=== PATIENT | male | born 1970 | race Caucasian/White ===

== ENCOUNTER 2018-07-08 10:33 | Observation (INO) | payer MEDICAID, OTHER ==
[~2018-07-08] VITALS: Ht 167.6 cm; Wt 90.4 kg
[~2018-07-08 10:33] MED LIST: ACET500C5 PO; ONDA4TAB14 PO
[2018-07-08] MEDS ORDERED: ASPIRIN 81 MG TAB PO STA (11:13)
[2018-07-08] MEDS ORDERED: morphine 4 MG/ML VIAL IV STA (11:13)
[2018-07-08] MEDS ORDERED: ONDANSETRON 4 MG INJ IV STA (11:13)
[2018-07-08] MEDS ORDERED: NITROGLYCERIN (SL) 0.4 MG TAB SL PRN (11:30)
[2018-07-08] MEDS ORDERED: ONDANSETRON 4 MG INJ IV PRN ×2 (13:30→15:30)
[2018-07-08] MEDS ORDERED: ACETAMINOPHEN 325 MG TAB PO PRN ×2 (13:30→15:30)
--- NOTE | 2018-07-08 13:50 | ERD ---
ER Documentation Chief Complaint Chief Complaint CP with head pain and nausea x 2 weeks, back pain x 3 days HPI 48-year-old male who presents to the emergency room with 2 weeks of progressive exertional chest discomfort that is left-sided. A proximally 3-10 presently. It was worse with exertion and worse with intercourse. He denies any mid back pain. He does have a very mild headache. He notes mild nausea with this. He did no back pain in triage but denies any ripping or tearing sensation or migratory sensation in the middle of his back. ROS All systems reviewed and are negative except as per history of present illness. Medications Home Meds Discontinued Scripts Acetaminophen* (Tylophen*) 500 Mg Capsule, 1 CAP PO Q6H PRN for PAIN AND OR ELEVATED TEMP, #20 CAP Prov:JESUS MANUEL SEVILLA PA-C 04/01/16 Ondansetron (Ondansetron Odt) 4 Mg Tab.rapdis, 4 MG PO Q6H PRN for NAUSEA AND/OR VOMITING, #10 TAB Prov:JESUS MANUEL SEVILLA PA-C 04/01/16 Allergies Allergies: Coded Allergies: No Known Allergy (Unverified , 07/08/18) PMhx/Soc History of Surgery: Yes (lap mame/appy) Anesthesia Reaction: No Hx Neurological Disorder: No Hx Respiratory Disorders: No Hx Cardiac Disorders: No Hx Psychiatric Problems: No Hx Miscellaneous Medical Probl: Yes (BACK PAIN) Hx Alcohol Use: Yes (OOC) Hx Substance Use: No Hx Tobacco Use: No Smoking Status: Never smoker FmHx Family History: No diabetes Physical Exam Vitals Vital Signs Date Temp Pulse Resp B/P (MAP) Pulse Ox O2 O2 Flow FiO2 Time Delivery Rate 07/08/18 Nasal 2 11:15 Cannula 07/08/18 97.4 74 18 133/73 96 10:41 (93) Physical Exam General: Well developed, well nourished, no acute distress Head: Normocephalic, atraumatic. Eyes: Pupils equally reactive, EOM intact ENT: Moist mucous membranes Neck: Supple, no lymphadenopathy Respiratory: Lungs clear bilaterally, no distress Cardiovascular: RRR, no murmurs, rubs, or gallops Abdominal: Soft, non-tender, non-distended, no peritoneal signs : Deferred MSK: No edema, no unilateral swelling, 5/5 strength, no pulse deficits Neurologic: Alert and oriented, moving all extremities, normal speech, no focal weakness, no cerebellar signs Skin: No rash Psych: Normal mood Result Diagram: 07/08/18 1120 07/08/18 1120 Results 24 hrs Laboratory Tests Test 07/08/18 11:20 White Blood Count 6.6 10^3/ul Red Blood Count 4.89 10^6/ul Hemoglobin 15.0 g/dl Hematocrit 43.9 % Mean Corpuscular Volume 89.8 fl Mean Corpuscular Hemoglobin 30.7 pg Mean Corpuscular Hemoglobin Concent 34.2 g/dl Red Cell Distribution Width 12.2 % Platelet Count 268 10^3/UL Mean Platelet Volume 9.6 fl Immature Granulocytes % 0.300 % Neutrophils % 64.5 % Lymphocytes % 25.1 % Monocytes % 7.1 % Eosinophils % 2.4 % Basophils % 0.6 % Nucleated Red Blood Cells % 0.0 /100WBC Immature Granulocytes # 0.020 10^3/ul Neutrophils # 4.3 10^3/ul Lymphocytes # 1.7 10^3/ul Monocytes # 0.5 10^3/ul Eosinophils # 0.2 10^3/ul Basophils # 0.0 10^3/ul Nucleated Red Blood Cells # 0.0 10^3/ul Sodium Level 140 mmol/L Potassium Level 3.9 mmol/L Chloride Level 105 mmol/L Carbon Dioxide Level 25 mmol/L Anion Gap 10 Blood Urea Nitrogen 16 mg/dl Creatinine 0.83 mg/dl Est Glomerular Filtrat Rate mL/min > 60 mL/min Glucose Level 144 mg/dl Calcium Level 9.8 mg/dl Troponin I < 0.012 ng/ml Current Medications Medications Dose Sig/Ronni Start Time Status Last (Trade) Ordered Route PRN Stop Time Admin Dose Reason Admin Aspirin 162 mg ONCE STAT 07/08/18 DC 07/08/18 (Aspirin) PO 11:13 11:25 07/08/18 11:14 1 tab Q5M UP TO 3 07/08/18 Nitroglycerin DOSES PRN 11:30 SL .CHEST (Nitroglyceri PAIN n (Sl Tab) 0.4 Mg) Morphine 4 mg ONCE STAT 07/08/18 DC 07/08/18 Sulfate IV 11:13 11:25 (morphine) 07/08/18 11:14 Ondansetron 4 mg ONCE STAT 07/08/18 DC 07/08/18 HCl (Zofran IV 11:13 11:25 Inj) 07/08/18 11:14 Ondansetron 4 mg ER BRIDGE 07/08/18 HCl (Zofran PRN IV 13:30 Inj) NAUSEA/VOMITI 07/09/18 13:29 NG 650 mg ER BRIDGE 07/08/18 Acetaminophen PRN PO 13:30 (Tylenol .MILD PAIN 07/09/18 13:29 Tab) 1-3 OR TEMP Procedures/MDM EKG, MONITORS, & DIAGNOSTIC IMAGING: EKG: I reviewed and interpreted a 12-lead EKG. Rhythm: Normal sinus rhythm ST Changes: No contiguous ST segment elevations T waves: No contiguous T wave inversions Impression: Subtle T wave inversion in lead III, abnormal EKG Repeat EKG: EKG: I reviewed and interpreted a 12-lead EKG. Rhythm: Normal sinus rhythm ST Changes: No contiguous ST segment elevations T waves: No contiguous T wave inversions Impression: Subtle T wave inversion and ST segment depression in lead III, abnormal EKG Chest x-ray: I reviewed and interpreted a 1 view of the chest Mediastinum: No enlargement Cardiac silhouette: No cardiomegaly Airspace: Clear lung fleming bilaterally without evidence of pneumothorax Bones: No evidence of fracture PROCEDURES: None LAB INTERPRETATION: Negative troponin MEDICAL DECISION MAKING: The patient's history, physical exam and clinical presentation is concerning for possible cardiogenic etiology and acute coronary syndrome. Based on the patient's clinical exam and history and risk factors, I have a much lower clinical concern for pulmonary embolism, acute aortic dissection, pneumothorax, pneumonia, cardiac tamponade HEART Score: 4 MACE Rate: 16% Shared Decision Making: We had a conversation regarding risk stratification, MACE rate, and the risks, benefits, alternatives of disposition planning options. Disposition planning: Admit for rule out ER COURSE: * Aspirin nitro morphine provided. Chest pain-free. * I do not believe this is consistent with acute aortic process. He is 2 weeks of symptoms. Patient has no significant hypertension or other risk factors. Better alternative diagnosis, no pulse deficits. Normal mediastinum on chest x-ray. CONSULTATION: None DISPOSITION PLAN: Telemetry admission for management of chest pain to rule out acute coronary syndrome, serial enzymes, risk stratification and consideration of provocative testing CONSULTATION: Accepting care team and consultations: I discussed the current laboratory data, diagnostic imaging and emergency care provided. Admitting team: Dr. Mcdaniel Admitting team indication: Insurance directed Departure Diagnosis: Primary Impression: Chest pain Chest pain type: unspecified Qualified Codes: R07.9 - Chest pain, unspecified Condition: Stable ROMIE ELIZABETH MD Jul 08, 2018 13:50
[2018-07-08 15:04] VITALS: Ht 167.6 cm; Wt 90.4 kg
[2018-07-08 15:07] VITALS: BP 109/55; PULSE 55; RESP 18
[2018-07-08] MEDS ORDERED: NACL 0.9% 3 ML SYG IV SCH (15:30)
[2018-07-08 15:33] VITALS: PULSE 48
--- NOTE | 2018-07-08 15:55 | HP ---
Date/Time of Note Date/Time of Note DATE: 07/08/18 TIME: 15:40 Assessment/Plan VTE Prophylaxis SCD applied (from Nsg): Yes Pharmacological prophylaxis: NA/contraindicated Pharm contraindication: low risk/ambulating Lines/Catheters IV Catheter Type (from Nrsg): Saline Lock Assessment/Plan Assessment/Plan 48 yo man no major PMH presents with unstable angina symptoms. #Chest pain - Initially on exertion, now worsening over past two weeks; negative troponins concerning for unstable angina - With pain radiating to back; will also check amylase/lipase as well as CT chest to r/o aortic pathology - Continue to trend trops - NG prn - TTE - Consulted Dr. Sr #Headache - tension-type. Currently no red flags to indicate imaging. - Tylenol, norco prn #Nausea/vomiting - May be related to chest pain - Zofran prn - will trial regular diet. DVT: SCDs GI: PPI Result Diagram: 07/08/18 1120 07/08/18 1120 HPI/ROS Admit Date/Time Admit Date/Time Jul 08, 2018 at 13:20 Hx of Present Illness Mr. Loving is a Macedonian-speaking man with no major PMH who presents with acute on chronic chest pain. Symptoms started 2 weeks ago. During intercourse with his he developed pressure-like mid substernal chest pain. After finishing he took aspirin with relief of pain. This exertional chest pain has occurred a few more times over the past two weeks. Today during intercourse he developed the same substernal chest pain, and then developed pressure-like back pain, severe aching occipital- bitemporal headache, and vomited x2 (nonbloody, nonbilious). Otherwise, he reports several months of decreasing exercise tolerance with dyspnea on exertion. For the past two months he's noticed frequent chills at night but no fevers or night sweats. Also reports burning dysuria for several days. He also reports orthopnea for several weeks. In the ED he was afebrile, vitals unremarkable. Labs were normal. Initial trop negative, CXR negative. ROS He denies fevers, night sweats, weight loss, anorexia, vision changes, sore throat, dysphagia, cough, abdominal pain, diarrhea, constipation, joint pain, melena, hematochezia. PMH/Family/Social Past Medical History Denies Medications Current Medications Nitroglycerin (Nitroglycerin (Sl Tab) 0.4 Mg) 1 tab Q5M UP TO 3 DOSES PRN SL .CHEST PAIN; Start 07/08/18 at 11:30 Ondansetron HCl (Zofran Inj) 4 mg ER BRIDGE PRN IV NAUSEA/VOMITING; Start 07/08/18 at 13:30; Stop 07/09/18 at 13:29 Acetaminophen (Tylenol Tab) 650 mg ER BRIDGE PRN PO .MILD PAIN 1-3 OR TEMP; Start 07/08/18 at 13:30; Stop 07/09/18 at 13:29 IV Flush (NS 3 ml) 3 ml PER PROTOCOL IV ; Start 07/08/18 at 15:30; Status UNV Ondansetron HCl (Zofran Inj) 4 mg Q6H PRN IV NAUSEA/VOMITING; Start 07/08/18 at 15:30; Status UNV Acetaminophen (Tylenol Tab) 650 mg Q6H PRN PO .PAIN 1-3 OR TEMP; Start 07/08/18 at 15:30; Status UNV Pantoprazole (Protonix Tab) 40 mg DAILY@06 PO ; Start 07/09/18 at 06:00; Status UNV Aspirin (Aspirin) 81 mg DAILY PO ; Start 07/09/18 at 09:00; Status UNV Coded Allergies: No Known Allergy (Unverified , 07/08/18) Past Surgical History Cholecystectomy Social History Alcohol Use: rarely Smoking Status: Never smoker Drug Use: none Exam/Review of Systems Vital Signs Vitals Vital Signs Date Temp Pulse Resp B/P (MAP) Pulse Ox O2 O2 Flow FiO2 Time Delivery Rate 07/08/18 48 15:33 07/08/18 98.4 18 109/55 97 Nasal 2.0 15:07 (73) Cannula Exam Exam Gen: Well developed man in no acute distress. Eyes: PERRL, no icterus HEENT: Moist mucous membranes, clear oropharynx Neck: Supple, no lymphadenopathy. No JVD Card: Regular rate and rhythm, no murmurs Pulm: Clear to auscultation bilaterally Abd: Soft, nontender, nondistended. No bruits. No palpable hepatosplenomegaly Back: No midline tenderness to palpation. No CVA tenderness. Ext: No cyanosis/clubbing/edema Skin: warm, dry, well perfused SALAMANCA,ROBSON S. MD Jul 08, 2018 15:55
[2018-07-08 16:06] VITALS: PULSE 51
[2018-07-08] MEDS: HYDROCODONE/APAP (5/325) TAB PO PRN ×2 (16:15→20:04)
--- NOTE | 2018-07-08 17:03 | CONS ---
Assessment/Plan Assessment/Plan Hospital Course (Demo Recall) Assessment: Typical chest pain - inferior and lateral precordial T wave inversions on EKG, initial troponin negative Recommendations: -serial troponins -transthoracic echocardiogram -coronary CTA -check HgbA1c and lipid panel -continue aspirin 81mg daily Consultation Date/Type/Reason Admit Date/Time Jul 08, 2018 at 13:20 Type of Consult Cardiology Reason for Consultation chest pain Date/Time of Note DATE: 07/08/18 TIME: 17:00 Hx of Present Illness The patient is a 48 year-old male with no known past medical history who presented with chest pain. He describes two weeks of left-sided chest pressure, which is exacerbated by sexual intercourse. EKG showed sinus rhythm with T waves inversions in inferior and lateral precordial leads. Initial troponin is negative. 14 point review of systems negative other than per HPI. Past Medical History Medical History: no pertinent history Home Meds Discontinued Scripts Acetaminophen* (Tylophen*) 500 Mg Capsule, 1 CAP PO Q6H PRN for PAIN AND OR [place] TEMP, #20 CAP Prov:JESUS MANUEL SEVILLA PA-C 04/01/16 Ondansetron (Ondansetron Odt) 4 Mg Tab.rapdis, 4 MG PO Q6H PRN for NAUSEA AND/OR VOMITING, #10 TAB Prov:JESUS MANUEL SEVILLA PA-C 04/01/16 Medications Current Medications Nitroglycerin (Nitroglycerin (Sl Tab) 0.4 Mg) 1 tab Q5M UP TO 3 DOSES PRN SL .CHEST PAIN; Start 07/08/18 at 11:30 IV Flush (NS 3 ml) 3 ml PER PROTOCOL IV ; Start 07/08/18 at 15:30 Ondansetron HCl (Zofran Inj) 4 mg Q6H PRN IV NAUSEA/VOMITING; Start 07/08/18 at 15:30 Acetaminophen (Tylenol Tab) 650 mg Q6H PRN PO .PAIN 1-3 OR TEMP; Start 07/08/18 at 15:30 Pantoprazole (Protonix Tab) 40 mg DAILY@06 PO ; Start 07/09/18 at 06:00 Aspirin (Aspirin) 81 mg DAILY PO ; Start 07/09/18 at 09:00 Acetaminophen/ Hydrocodone Bitart ([place] (5/325)) 1 tab Q4H PRN PO SEVERE PAIN LEVEL 7-10 Last administered on 07/08/18at 16:15; Admin Dose 1 TAB; Start 07/08/18 at 16:00 Allergies: Coded Allergies: No Known Allergy (Unverified , 07/08/18) Past Surgical History Past Surgical Hx: cholecystectomy Family History Significant Family History: no pertinent family hx Social History Alcohol Use: rarely Smoking Status: Never smoker Drug Use: none Exam/Review of Systems Vital Signs Vitals Vital Signs Date Temp Pulse Resp B/P (MAP) Pulse Ox O2 O2 Flow FiO2 Time Delivery Rate 07/08/18 51 16:06 07/08/18 Nasal 2.0 15:49 Cannula 07/08/18 98.4 18 109/55 97 15:07 (73) Exam Constitutional: alert, well developed Psych: no complaints, nl mood/affect Head: normocephalic, atraumatic Eyes: nl conjunctiva, nl lids ENMT: nl external ears & nose, nl nasal mucosa & septum Neck: supple, non-tender Respiratory: clear to auscultation Cardiovascular: regular rate and rhythm Gastrointestinal: soft, non-tender Musculoskeletal: nl extremities to inspection Extremities: No cyanosis, No clubbing, No edema Neurological: nl mental status, nl speech Labs Result Diagram: 07/08/18 1120 07/08/18 1120 Results 24hrs Laboratory Tests Test 07/08/18 11:20 07/08/18 15:51 White Blood Count 6.6 Red Blood Count 4.89 Hemoglobin 15.0 Hematocrit 43.9 Mean Corpuscular Volume 89.8 Mean Corpuscular Hemoglobin 30.7 Mean Corpuscular Hemoglobin Concent 34.2 Red Cell Distribution Width 12.2 Platelet Count 268 Mean Platelet Volume 9.6 Immature Granulocytes % 0.300 Neutrophils % 64.5 Lymphocytes % 25.1 Monocytes % 7.1 Eosinophils % 2.4 Basophils % 0.6 Nucleated Red Blood Cells % 0.0 Immature Granulocytes # 0.020 Neutrophils # 4.3 Lymphocytes # 1.7 Monocytes # 0.5 Eosinophils # 0.2 Basophils # 0.0 Nucleated Red Blood Cells # 0.0 Sodium Level 140 Potassium Level 3.9 Chloride Level 105 Carbon Dioxide Level 25 Anion Gap 10 Blood Urea Nitrogen 16 Creatinine 0.83 Est Glomerular Filtrat Rate mL/min > 60 Glucose Level 144 Calcium Level 9.8 Troponin I < 0.012 Amylase Level 101 Lipase 44 Medications Medications Current Medications Nitroglycerin (Nitroglycerin (Sl Tab) 0.4 Mg) 1 tab Q5M UP TO 3 DOSES PRN SL .CHEST PAIN; Start 07/08/18 at 11:30 IV Flush (NS 3 ml) 3 ml PER PROTOCOL IV ; Start 07/08/18 at 15:30 Ondansetron HCl (Zofran Inj) 4 mg Q6H PRN IV NAUSEA/VOMITING; Start 07/08/18 at 15:30 Acetaminophen (Tylenol Tab) 650 mg Q6H PRN PO .PAIN 1-3 OR TEMP; Start 07/08/18 at 15:30 Pantoprazole (Protonix Tab) 40 mg DAILY@06 PO ; Start 07/09/18 at 06:00 Aspirin (Aspirin) 81 mg DAILY PO ; Start 07/09/18 at 09:00 Acetaminophen/ Hydrocodone Bitart ([place] (5/325)) 1 tab Q4H PRN PO SEVERE PAIN LEVEL 7-10 Last administered on 07/08/18at 16:15; Admin Dose 1 TAB; Start 07/08/18 at 16:00 REJI WOLFF MD Jul 08, 2018 17:03
[2018-07-08 20:00] VITALS: BP 102/56; PULSE 56; RESP 18
[2018-07-08 20:10] VITALS: PULSE 50
[2018-07-08] MEDS ORDERED: KETOROLAC 30 MG INJ IV STA (21:11)
[2018-07-09] VITALS (7 sets, daily range): BP systolic 100–106; BP diastolic 54–61; PULSE 49–81; RESP 18
[2018-07-09] MEDS ORDERED: PANTOPRAZOLE (EC) 40 MG TAB PO SCH (06:00)
[2018-07-09] MEDS: HYDROCODONE/APAP (5/325) TAB PO PRN (08:24)
[2018-07-09] MEDS ORDERED: ASPIRIN 81 MG TAB PO SCH (09:00)
[2018-07-09] MEDS ORDERED: IOHEXOL 100 ML ONE (09:40)
[2018-07-09] MEDS ORDERED: SOD CHLORIDE 0.9% 100 ML ONE (09:40)
[2018-07-09] MEDS ORDERED: NITROGLYCERIN AEROSOL (4.9 GM) ONE (10:24)
[2018-07-09] MEDS ORDERED: METOPROLOL 5 MG INJ ONE (10:24)
[2018-07-09] MEDS ORDERED: NITROGLYCERIN AEROSOL (4.9 GM) SL PRN (12:00)
[2018-07-09] MEDS ORDERED: METOPROLOL 5 MG INJ IV ONE (12:00)
--- NOTE | 2018-07-09 14:16 | DS ---
Date/Time of Note Date/Time of Note DATE: 07/09/18 TIME: 14:12 Discharge Summary Admission/Discharge Info Admit Date/Time Jul 08, 2018 at 13:20 Discharge Date/Time Discharge Diagnosis 1, Chest pain, muscular, resolved, negative coronary CTA, follow up with card reece Patient Condition: Stable Hospital Course 48 years old male came in with chest pain twice while he was having intercourse. Chest pain was on left frontal chest, involving the back. Troponin negative. Coronary CT angiography is negative. Chest pain is considered muscular. Patient needs to follow up with PCP and back for further evaluation if similar chest pain happens again. Home Meds Discontinued Scripts Acetaminophen* (Tylophen*) 500 Mg Capsule, 1 CAP PO Q6H PRN for PAIN AND OR ELEVATED TEMP, #20 CAP Prov:JESUS MANUEL SEVILLA PA-C 04/01/16 Ondansetron (Ondansetron Odt) 4 Mg Tab.rapdis, 4 MG PO Q6H PRN for NAUSEA AND/OR VOMITING, #10 TAB Prov:JESUS MANUEL SEVILLA PA-C 04/01/16 Follow-up Plan PCP and cardiology in one week Primary Care Provider Care Physician No Primary Pending Labs Laboratory Tests Test 07/08/18 15:51 07/08/18 16:21 07/08/18 17:07 07/08/18 17:55 Amylase Level 101 U/L (11-123) Lipase 44 U/L (23-300) Urine Color YELLOW (YELLOW ) Urine Clarity CLEAR (CLEAR) Urine pH 5.0 (5.0-9.0) Urine Specific 1.024 (1.003-1 Sutton .030) Urine Ketones TRACE mg/dL (NEGATIV E) Urine Nitrite NEGATIVE mg/dL (NEGATIV E) Urine NEGATIVE Bilirubin mg/dL (NEGATIV E) Urine NEGATIVE Urobilinogen mg/dL (NEGATIV E) Urine Leukocyte NEGATIVE Raghav/u Esterase l Urine NEGATIVE Hemoglobin mg/dL (NEGATIV E) Urine Glucose NEGATIVE mg/dL (NEGATIV E) Urine Total NEGATIVE Protein mg/dl (NEGATIV E) Creatine 246 Kinase IU/L (23-200) Creatine Kinase 0.6 Index Creatinine 1.58 Kinase MB ng/ml (0.0-2.4 (Mass) ) Troponin I < 0.012 < 0.012 ng/ml (0.000-0 ng/ml (0.000-0 .120) .120) Test 07/08/18 23:36 07/09/18 06:02 Creatine 189 Kinase IU/L (23-200) Creatine Kinase 0.7 Index Creatinine 1.40 Kinase MB ng/ml (0.0-2.4) (Mass) Troponin I < 0.012 < 0.012 ng/ml (0.000-0. ng/ml (0.000-0 120) .120) White Blood 6.6 Count 10^3/ul (4.8-1 0.8) Red Blood 4.71 Count 10^6/ul (4.70- 6.10) Hemoglobin 14.8 g/dl (14.0-18. 0) Hematocrit 43.1 % (42.0-52.0) Mean 91.5 Corpuscular fl (82.0-101.0 Volume ) Mean 31.4 Corpuscular pg (29.0-33.0) Hemoglobin Mean 34.3 Corpuscular g/dl (32.0-37. Hemoglobin Conc 0) ent Red Cell 12.5 Distribution % (11.5-14.5) Width Platelet Count 249 10^3/UL (140-4 15) Mean Platelet 10.0 Volume fl (7.4-10.4) Immature 0.300 Granulocytes % % (0.001-0.429 ) Neutrophils % 62.0 % (39.0-77.0) Lymphocytes % 28.9 % (15.0-51.0) Monocytes % 5.8 % (0.0-11.0) Eosinophils % 2.4 % (0.0-7.0) Basophils % 0.6 % (0.0-2.0) Nucleated Red 0.0 Blood Cells % /100WBC (0.0-0 .0) Immature 0.020 Granulocytes # 10^3/ul (0.0-0 .031) Neutrophils # 4.1 10^3/ul (1.6-7 .5) Lymphocytes # 1.9 10^3/ul (0.8-2 .9) Monocytes # 0.4 10^3/ul (0.3-0 .9) Eosinophils # 0.2 10^3/ul (0.0-0 .5) Basophils # 0.0 10^3/ul (0.0-0 .1) Nucleated Red 0.0 Blood Cells # 10^3/ul (0.0-0 .0) Sodium Level 140 mmol/L (135-14 4) Potassium 4.4 Level mmol/L (3.5-5. 1) Chloride Level 104 mmol/L (97-110 ) Carbon Dioxide 26 Level mmol/L (21-31) Anion Gap 10 (5-13) Blood Urea 21 Nitrogen mg/dl (7-20) Creatinine 0.74 mg/dl (0.61-1. 24) Est Glomerular > 60 Filtrat mL/min (>60) Rate mL/min Glucose Level 108 mg/dl (70-220) Hemoglobin A1c 5.6 % (0-5.9) Calcium Level 9.5 mg/dl (8.4-10. 2) Phosphorus 3.3 Level mg/dl (2.5-4.9 ) Magnesium 1.9 Level mg/dl (1.7-2.5 ) Total 0.5 Bilirubin mg/dl (0.2-1.3 ) Direct 0.00 Bilirubin mg/dl (0.00-0. 20) Indirect 0.5 Bilirubin mg/dl (0-1.1) Aspartate Amino 26 Transf (AST/SGO IU/L (15-46) T) Alanine 39 Aminotransferas IU/L (13-69) e (ALT/SGPT) Alkaline 78 Phosphatase IU/L (42-121) Total Protein 7.1 g/dl (6.1-8.1) Albumin 4.1 g/dl (3.3-4.9) Globulin 3.00 g/dl (1.3-3.2) Albumin/Globuli 1.36 n Ratio Triglycerides 132 Level mg/dl (0-149) Cholesterol 175 Level mg/dl (100-200 ) LDL 109 mg/dl Cholesterol, Calculated HDL 40 Cholesterol mg/dl (27-67) Cholesterol/HDL 4.3 RATIO Ratio Thyroid 3.630 Stimulating MIU/L (0.465-4 Hormone (TSH) .680) Microbiology Date/Time Source Procedure Growth Status 07/08/18 16:21 Clean Catch Urine Urine Culture - Preliminary NO Resulted GROWTH AFTER 24 HOURS NETO MCGINNIS MD Jul 09, 2018 14:16
--- NOTE | 2018-07-09 14:30 | RADRPT ---
Echocardiogram Report Patient Name: Nithya RUIZtient ID: [id number] : 1970 (48y 4m)Study Date: 07/09/2018 7:18:09 AM Gender: MAccession #: [id number] Tech: Danielle Leigh [facility] Location: [facility] Ref.Physician: ROBSON SALAMANCA Height(Cm): BSA: Weight(Kg): Quality: AdequateAccount #: Procedures: Echocardiographic Report: Transthoracic echocardiogram with complete 2D, M-Mode, and doppler examination. Indications: Chest Pain, LUNSFORD. Measurements: 2D/M Mode Doppler Measurement Value Normal Range Measurement Value Normal Range LVIDd 2D 4.3 [ 4.2 - 5.8 ] cm AV Peak Jamil 1.5 [ 100.0 - 170.0 ] cm/sec LVIDs 2D 2.5 [ 2.5 - 4.0 ] cm AV Peak PG 9.0 [ 2.0 - 9.0 ] mmHg LVPWd 2D 1.2 [ 0.6 - 1.0 ] cm LVOT Peak Jamil 1.2 [ 70.0 - 110.0 ] cm/sec IVSd 2D 1.2 [ 0.6 - 1.0 ] cm LVOT Peak PG 6.0 [ 2.0 - 6.0 ] mmHg AoR Diam 2D 2.7 [ 2.6 - 3.4 ] cm MV E Peak Jamil 0.9 [ 60.0 - 130.0 ] cm/sec EDV 2D 81.7 [ 62.0 - 150.0 ] ml MV A Peak Jamil 0.5 [ 100.0 - 120.0 ] cm/sec ESV 2D 23.0 [ 21.0 - 61.0 ] ml MV E/A 1.8 [ 0.8 - 1.5 ] ratio EF 2D 71.8 [ 52.0 - 72.0 ] percent MV Decel Time 201 [ 104 - 258 ] msec LA Dimen 2D 3.0 [ 3.0 - 4.0 ] cm Lat E` Jamil 0.1 [ 10.0 - 15.0 ] cm/sec Lateral E/E` 5.8 [ 1.0 - 2.0 ] ratio MV E/A 1.8 [ 0.8 - 1.5 ] ratio TR Peak Jamil 2.6 [ 100.0 - 280.0 ] cm/sec TR Peak PG 27.0 mmHg RVSP 30.0 [ 10.0 - 36.0 ] mmHg RA Pressure 3.0 mmHg Findings: Left Ventricle: Normal left ventricular systolic function. Normal left ventricular cavity size. Left ventricular wall thickness upper limits of normal. Ejection fraction is visually estimated at 60 %. Tissue Doppler/Mitral Doppler indices are within normal limits. Right Ventricle: Normal right ventricular size. Normal right ventricular systolic function. Left Atrium: The left atrium is normal in size. Right Atrium: The right atrium is normal in size. Mitral Valve: Normal appearance and function of the mitral valve with trace physiologic regurgitation. Aortic Valve: Normal appearance of the aortic valve. No significant aortic stenosis or insufficiency. Tricuspid Valve: Normal appearance of the tricuspid valve. Estimated peak PA systolic pressure 30 mmHg. There is trace tricuspid regurgitation. Pulmonic Valve: Normal pulmonic valve appearance. Pericardium: Normal pericardium with no significant pericardial effusion. Aorta: Normal aortic root. IVC: Normal size and normal respiratory collapse consistent with normal right atrial pressure. Conclusions: Normal left ventricular systolic function. Normal left ventricular cavity size. Left ventricular wall thickness upper limits of normal. Ejection fraction is visually estimated at 60 %. Tissue Doppler/Mitral Doppler indices are within normal limits. Electronically Signed By: Asael Sr 2018-07-09 14:29:53 PDT
== END 2018-07-09 15:04 | disposition home or self-care (01) ==
LOC: E/R 10:33 → TEL 13:20
PROVIDERS: ADMIT Internal Medicine; ATTEND Internal Medicine
DX: R07.89 Other chest pain (principal); R51 Headache; R11.2 Nausea with vomiting, unspecified; Z23 Encounter for immunization
CPT/HCPCS: 36415; 71045; 75574; 80048; 80053; 80061; 81003; 82150; 82550; 82553; 83036; 83690; 83735; 84100; 84443; 84484; 85025; 87086; 87591; 90686; 93005; 93306; 96374; 96375; J1885; J2270; J2405; Q9967; Z7500; Z7502; Z7610; G0378